=== PATIENT | female | born 1940 | race Caucasian/White ===

== ENCOUNTER 2017-05-06 16:19 | Emergency (ER) | payer OTHER ==
[~2017-05-06] VITALS: Ht 165.1 cm; Wt 69.8 kg
[~2017-05-06 16:19] MED LIST: ALLEGRA180 MG PO; ASPIR-TRIN325 M1 PO; CILOSTAZOL100 MG PO; CLONIDINE HCL0.1 MG PO; DIOVAN HCT 31 TABLE1 PO; LANTUS 3 M100 UNITS1 SQ; LEVAQUIN500 MG PO; LIPITOR20 MG PO; LYRICA100 MG PO; METANX CAPSULE1 EACH PO; NORVASC10 MG PO; NOVOLOG MI100 UNIT/3 SC; NOVOLOG MI100 UNIT/M SC; PROTONIX40 MG PO; SINGULAIR10 MG PO; TOPROL XL100 MG PO; TOVIAZ4 MG PO; ZOFRAN ODT4 MG PO; ZYRTEC10 M2 PO
[2017-05-06 18:19] LABS: BASOPHIL COUNT 0.1 K/uL (0-0.1); EOSINOPHIL (%) 2.5 % (0-5); EOSINOPHIL COUNT 0.2 K/uL (0-0.3); HEMATOCRIT 33.8 % (36.0-46.0); IMMATURE GRANULOCYTE (%) 0.4 % (0.0-0.7); INSTRUMENT ABS NEUTROPHIL CT 5.9 K/uL; LYMPHOCYTE COUNT 2.2 K/uL (1.0-2.8); MCH 29.5 PG (29.0-34.0); MCHC 33.7 G/DL (30.0-36.0); MCV 87.3 FL (83-99); MEAN PLAT.VOLUME 9.9 uM^3 (9.5-12.4); MONOCYTE (%) 9.5 % (3-12); MONOCYTE COUNT 0.9 K/uL (0-0.8); NEUTROPHIL (%) 62.9 % (45-76); NEUTROPHIL COUNT 5.9 K/uL (1.8-6.4); PLATELET COUNT 242 K/uL (156-360); RBC DIS.WIDTH-CV 12.8 % (11.8-14.6); RBC DIS.WIDTH-SD 41.1 % (39-53); RED BLOOD COUNT 3.87 M/uL (3.80-5.20); WHITE BLOOD COUNT 9.3 K/uL (4.1-10.2)
[2017-05-06 18:33] LABS: CHLORIDE 108 mEq/L (99-109); POTASSIUM 3.9 mEq/L (3.7-5.4); SODIUM 142 mEq/L (136-147)
[2017-05-06 18:34] LABS: GLUCOSE 113 mg/dL (70-99)
[2017-05-06 18:36] LABS: ANION GAP 12 MEQ/L (2-14)
[2017-05-06 18:38] LABS: GFR ESTIMATE (CALCULATED) 36 mL/min/
[2017-05-06 18:39] LABS: UREA NITROGEN (BUN) 30 mg/dL (9-23)
[2017-05-06 18:51] LABS: TROP-I INTERPRETATION NEGATIVE; TROPONIN-I < 0.01 ng/mL (0.0-0.30)
[2017-05-06 19:57] VITALS: BP 193/64
== END 2017-05-06 19:58 | disposition home or self-care (01) ==
LOC: EME 16:19
PROVIDERS: Emergency Medicine
DX: I12.9 Hypertensive chronic kidney disease with stage 1 through stage 4 chronic kidney disease, or unspecified chronic kidney disease (principal); N18.9 Chronic kidney disease, unspecified; L30.9 Dermatitis, unspecified; E11.9 Type 2 diabetes mellitus without complications; E78.5 Hyperlipidemia, unspecified; Z85.3 Personal history of malignant neoplasm of breast; Z79.4 Long term (current) use of insulin; J45.909 Unspecified asthma, uncomplicated; Z88.0 Allergy status to penicillin
CPT/HCPCS: 80048; 84484; 85025; 93005; 99281; 99284

== ENCOUNTER 2017-10-05 04:40 | Inpatient (IN) | payer OTHER ==
[~2017-10-05] VITALS: Ht 165.1 cm; Wt 63.6 kg
[2017-10-05 05:16] LABS: BASOPHIL (%) 0.8 % (0-1); BASOPHIL COUNT 0.1 K/uL (0-0.1); EOSINOPHIL (%) 1.7 % (0-5); EOSINOPHIL COUNT 0.1 K/uL (0-0.3); HEMATOCRIT 34.2 % (36.0-46.0); HEMOGLOBIN 11.4 G/DL (11.9-15.5); IMMATURE GRANULOCYTE (%) 0.6 % (0.0-0.7); LYMPHOCYTE (%) 22.6 % (15-42); LYMPHOCYTE COUNT 1.6 K/uL (1.0-2.8); MCH 28.8 PG (29.0-34.0); MCHC 33.3 G/DL (30.0-36.0); MCV 86.4 FL (83-99); MONOCYTE (%) 10.2 % (3-12); MONOCYTE COUNT 0.7 K/uL (0-0.8); NEUTROPHIL (%) 64.1 % (45-76); NEUTROPHIL COUNT 4.6 K/uL (1.8-6.4); PLATELET COUNT 210 K/uL (156-360); RBC DIS.WIDTH-CV 13.6 % (11.8-14.6); RBC DIS.WIDTH-SD 43.3 % (39-53); RED BLOOD COUNT 3.96 M/uL (3.80-5.20); WHITE BLOOD COUNT 7.1 K/uL (4.1-10.2)
[2017-10-05 05:36] LABS: TROP-I INTERPRETATION NEGATIVE; TROPONIN-I 0.05 ng/mL (0.0-0.30)
[2017-10-05 05:38] LABS: ALBUMIN 3.3 g/dL (3.2-4.8)
[2017-10-05 05:39] LABS: CHLORIDE 109 mEq/L (99-109); POTASSIUM 2.9 mEq/L (3.7-5.4); SODIUM 140 mEq/L (136-147)
[2017-10-05 05:41] LABS: GLUCOSE 156 mg/dL (70-99); TOTAL PROTEIN 5.6 g/dL (6.4-8.3)
[2017-10-05 05:43] LABS: TOTAL BILIRUBIN 0.9 mg/dL (0.0-1.0)
[2017-10-05 05:44] LABS: ALKALINE PHOSPHATASE 60 IU/L (3-129)
[2017-10-05 05:45] LABS: CREATININE 1.2 mg/dL (0.6-1.3); GFR ESTIMATE (CALCULATED) 46 mL/min/
[2017-10-05 05:46] LABS: AST (GOT) 23 IU/L (2-34); UREA NITROGEN (BUN) 20 mg/dL (9-23)
[2017-10-05 05:47] LABS: ALT (GPT) 13 IU/L (3-49)
[2017-10-05 05:48] LABS: LIPASE 17 U/L (1.0-51.0)
[2017-10-05 10:33] LABS: APPEARANCE CLOUDY ((CLEAR)); BILIRUBIN NEGATIVE; BLOOD NEGATIVE; COLOR YELLOW ((YELLOW)); GLUCOSE (STRIP) NEGATIVE; KETONES NEGATIVE; LEUKOCYTES MODERATE; NITRITE NEGATIVE; PROTEIN (STRIP) 30; SPECIFIC GRAVITY 1.013 (1.000-1.030); UROBILINOGEN 0.2 MG/DL (0.2-1.0)
[2017-10-05] MEDS ORDERED: LEVEMIR FL100 UNIT/1 SC (10:40)
[2017-10-05] MEDS ORDERED: CLOPIDOGREL75 MG PO (10:41)
[2017-10-05] MEDS ORDERED: APRESOLINE50 MG PO (10:41)
[2017-10-05] MEDS ORDERED: OMEPRAZOLE40 M1 PO (10:41)
[2017-10-05] MEDS ORDERED: TOLTERODINE TART4 MG PO (10:42)
[2017-10-05] MEDS ORDERED: HYTRIN5 MG PO (10:42)
[2017-10-05] MEDS ORDERED: OMEPRAZOLE20 MG PO (10:42)
[2017-10-05 10:51] LABS: BACTERIA 3+ /HPF; EPITHELIAL CELLS 2+ /HPF; MUCUS NONE SEEN /LPF; RED BLOOD CELLS 0-5 /HPF (0-5); WHITE BLOOD CELLS 20-30 /HPF (0-5)
[2017-10-05 11:07] LABS: TROP-I INTERPRETATION NEGATIVE; TROPONIN-I 0.06 ng/mL (0.0-0.30)
[2017-10-05 14:50] LABS: TYPE OF FLUID PLEURAL
[2017-10-05 15:22] LABS: BODY FLUID GLUCOSE 139 MG/DL; BODY FLUID LDH 61 IU/L
[2017-10-05 15:24] LABS: BODY FLUID PROTEIN < 3.0 G/DL
[2017-10-05 15:47] VITALS: BP 190/81
[2017-10-05 15:55] LABS: APPEARANCE SL. HAZY-YELLOW; BODY FLUID EOSINOPHILS 0 % (0-25); BODY FLUID RBC'S 1000 /MM^3 (0-100); BODY FLUID WBC'S 693 /MM^3 (0-500); MONONUCLEAR WBC'S 98 %; POLYNUCLEAR WBC'S 2 % (0-25)
[2017-10-05 17:52] VITALS: BP 185/83
[2017-10-05 18:15] LABS: TROP-I INTERPRETATION NEGATIVE; TROPONIN-I 0.05 ng/mL (0.0-0.30)
[2017-10-05 19:15] VITALS: BP 183/81
[2017-10-06] VITALS (7 sets, daily range): BP systolic 135–176; BP diastolic 66–86
[2017-10-06 05:58] LABS: CHLORIDE 106 MEQ/L (99-109); CREATININE 1.6 MG/DL (0.6-1.3); GFR ESTIMATE (CALCULATED) 33 mL/min/; GLUCOSE 105 mg/dL (70-99); POTASSIUM 3.9 MEQ/L (3.7-5.4); SODIUM 141 MEQ/L (136-147); UREA NITROGEN (BUN) 20 mg/dL (9-23)
[2017-10-07 03:41] VITALS: BP 159/72
[2017-10-07 06:25] LABS: HEMOGLOBIN 10.2 G/DL (11.9-15.5); MCH 29.1 PG (29.0-34.0); MCHC 32.9 G/DL (30.0-36.0); MCV 88.3 FL (83-99); PLATELET COUNT 153 K/uL (156-360); RBC DIS.WIDTH-SD 45.4 % (39-53); RED BLOOD COUNT 3.51 M/uL (3.80-5.20); WHITE BLOOD COUNT 7.2 K/uL (4.1-10.2)
[2017-10-07 08:00] VITALS: BP 179/70
[2017-10-07 11:33] LABS: ALBUMIN 3.2 G/DL (3.2-4.8); ALKALINE PHOSPHATASE 50 IU/L (3-129); ALT (GPT) 9 IU/L (3-49); AST (GOT) 17 IU/L (2-34); CHLORIDE 103 MEQ/L (99-109); CREATININE 3.3 MG/DL (0.6-1.3); GFR ESTIMATE (CALCULATED) 14 mL/min/; GLUCOSE 150 mg/dL (70-99); POTASSIUM 4.4 MEQ/L (3.7-5.4); SODIUM 137 MEQ/L (136-147); TOTAL BILIRUBIN 0.7 MG/DL (0.0-1.0); UREA NITROGEN (BUN) 30 mg/dL (9-23)
[2017-10-07 11:54] VITALS: BP 143/64
[2017-10-07 17:21] VITALS: BP 167/74
[2017-10-07 19:20] VITALS: BP 147/67
[2017-10-07 23:35] VITALS: BP 149/70
[2017-10-08 03:25] VITALS: BP 150/69
[2017-10-08 06:39] LABS: HEMOGLOBIN 10.1 G/DL (11.9-15.5); MCH 29.3 PG (29.0-34.0); MCHC 32.6 G/DL (30.0-36.0); MCV 89.9 FL (83-99); PLATELET COUNT 163 K/uL (156-360); RED BLOOD COUNT 3.45 M/uL (3.80-5.20)
[2017-10-08 07:07] LABS: ALKALINE PHOSPHATASE 47 IU/L (3-129); ALT (GPT) 9 IU/L (3-49); AST (GOT) 15 IU/L (2-34); CHLORIDE 103 MEQ/L (99-109); CREATININE 3.8 MG/DL (0.6-1.3); GFR ESTIMATE (CALCULATED) 12 mL/min/; POTASSIUM 4.2 MEQ/L (3.7-5.4); SODIUM 139 MEQ/L (136-147); TOTAL BILIRUBIN 0.6 MG/DL (0.0-1.0); TOTAL PROTEIN 4.7 G/DL (6.4-8.3); UREA NITROGEN (BUN) 38 mg/dL (9-23)
[2017-10-08 07:08] LABS: GLUCOSE 97 mg/dL (70-99)
[2017-10-08 07:14] VITALS: BP 164/77
[2017-10-08 15:32] VITALS: BP 153/72
[2017-10-08 23:30] VITALS: BP 157/65
[2017-10-09 06:30] LABS: HEMATOCRIT 29.5 % (36.0-46.0); HEMOGLOBIN 9.8 G/DL (11.9-15.5); MCH 29.3 PG (29.0-34.0); MCHC 33.2 G/DL (30.0-36.0); MCV 88.3 FL (83-99); PLATELET COUNT 175 K/uL (156-360); RBC DIS.WIDTH-CV 13.7 % (11.8-14.6); RBC DIS.WIDTH-SD 43.9 % (39-53); RED BLOOD COUNT 3.34 M/uL (3.80-5.20); WHITE BLOOD COUNT 7.6 K/uL (4.1-10.2)
[2017-10-09 06:47] LABS: ALKALINE PHOSPHATASE 47 IU/L (3-129); ALT (GPT) 10 IU/L (3-49); AST (GOT) 18 IU/L (2-34); CHLORIDE 101 MEQ/L (99-109); CREATININE 3.9 MG/DL (0.6-1.3); GFR ESTIMATE (CALCULATED) 12 mL/min/; GLUCOSE 98 mg/dL (70-99); SODIUM 135 MEQ/L (136-147); TOTAL BILIRUBIN 0.5 MG/DL (0.0-1.0); TOTAL PROTEIN 4.9 G/DL (6.4-8.3); UREA NITROGEN (BUN) 43 mg/dL (9-23)
[2017-10-09 08:17] VITALS: BP 164/79
[2017-10-09 11:00] VITALS: BP 162/67
[2017-10-09 16:30] VITALS: BP 154/64
[2017-10-09 19:38] VITALS: BP 131/60
[2017-10-09 23:26] VITALS: BP 156/70
[2017-10-10 03:45] VITALS: BP 162/74
[2017-10-10 06:33] LABS: HEMATOCRIT 31.7 % (36.0-46.0); HEMOGLOBIN 10.5 G/DL (11.9-15.5); MCH 29.6 PG (29.0-34.0); MCHC 33.1 G/DL (30.0-36.0); MCV 89.3 FL (83-99); PLATELET COUNT 180 K/uL (156-360); RBC DIS.WIDTH-CV 13.6 % (11.8-14.6); RBC DIS.WIDTH-SD 44.7 % (39-53); RED BLOOD COUNT 3.55 M/uL (3.80-5.20); WHITE BLOOD COUNT 9.1 K/uL (4.1-10.2)
[2017-10-10 07:15] LABS: ALBUMIN 3.1 G/DL (3.2-4.8); ALKALINE PHOSPHATASE 50 IU/L (3-129); ALT (GPT) 10 IU/L (3-49); AST (GOT) 15 IU/L (2-34); CHLORIDE 100 MEQ/L (99-109); CREATININE 3.7 MG/DL (0.6-1.3); GFR ESTIMATE (CALCULATED) 13 mL/min/; GLUCOSE 91 mg/dL (70-99); PHOSPHORUS 5.1 mg/dL (2.5-4.9); POTASSIUM 4.3 MEQ/L (3.7-5.4); SODIUM 135 MEQ/L (136-147); TOTAL BILIRUBIN 0.6 MG/DL (0.0-1.0); TOTAL PROTEIN 5.1 G/DL (6.4-8.3); UREA NITROGEN (BUN) 49 mg/dL (9-23)
[2017-10-10 07:33] VITALS: BP 180/77
[2017-10-10 12:29] VITALS: BP 166/74
[2017-10-10 15:17] VITALS: BP 168/71
[2017-10-10 23:34] VITALS: BP 123/72
[2017-10-11 06:46] LABS: HEMATOCRIT 29.7 % (36.0-46.0); MCH 29.9 PG (29.0-34.0); MCHC 33.7 G/DL (30.0-36.0); MCV 88.9 FL (83-99); PLATELET COUNT 172 K/uL (156-360); RBC DIS.WIDTH-CV 13.5 % (11.8-14.6); RBC DIS.WIDTH-SD 44.1 % (39-53); RED BLOOD COUNT 3.34 M/uL (3.80-5.20); WHITE BLOOD COUNT 10.9 K/uL (4.1-10.2)
[2017-10-11 07:00] VITALS: BP 157/65
[2017-10-11 07:13] LABS: ALBUMIN 2.9 G/DL (3.2-4.8); ALKALINE PHOSPHATASE 46 IU/L (3-129); ALT (GPT) 10 IU/L (3-49); AST (GOT) 14 IU/L (2-34); CHLORIDE 99 MEQ/L (99-109); GFR ESTIMATE (CALCULATED) 9 mL/min/; GLUCOSE 78 mg/dL (70-99); PHOSPHORUS 6.4 mg/dL (2.5-4.9); POTASSIUM 4.4 MEQ/L (3.7-5.4); SODIUM 134 MEQ/L (136-147); TOTAL BILIRUBIN 0.6 MG/DL (0.0-1.0); TOTAL PROTEIN 4.7 G/DL (6.4-8.3); UREA NITROGEN (BUN) 61 mg/dL (9-23)
[2017-10-11 07:14] LABS: CREATININE 4.8 MG/DL (0.6-1.3)
[2017-10-11 11:32] VITALS: BP 144/65
[2017-10-11 15:00] VITALS: BP 144/61
[2017-10-11 20:03] VITALS: BP 145/63
[2017-10-11 23:27] VITALS: BP 151/57
[2017-10-12 02:47] VITALS: BP 140/70
[2017-10-12 06:05] LABS: HEMATOCRIT 28.2 % (36.0-46.0); HEMOGLOBIN 9.2 G/DL (11.9-15.5); MCH 28.7 PG (29.0-34.0); MCHC 32.6 G/DL (30.0-36.0); MCV 87.9 FL (83-99); PLATELET COUNT 180 K/uL (156-360); RBC DIS.WIDTH-CV 13.3 % (11.8-14.6); RED BLOOD COUNT 3.21 M/uL (3.80-5.20); WHITE BLOOD COUNT 9.3 K/uL (4.1-10.2)
[2017-10-12 06:39] LABS: ALBUMIN 2.9 G/DL (3.2-4.8); ALKALINE PHOSPHATASE 49 IU/L (3-129); ALT (GPT) 11 IU/L (3-49); AST (GOT) 18 IU/L (2-34); CHLORIDE 95 MEQ/L (99-109); CREATININE 5.4 MG/DL (0.6-1.3); GFR ESTIMATE (CALCULATED) 8 mL/min/; GLUCOSE 81 mg/dL (70-99); POTASSIUM 4.6 MEQ/L (3.7-5.4); SODIUM 129 MEQ/L (136-147); TOTAL BILIRUBIN 0.6 MG/DL (0.0-1.0); TOTAL PROTEIN 4.7 G/DL (6.4-8.3); UREA NITROGEN (BUN) 66 mg/dL (9-23)
[2017-10-12 08:07] VITALS: BP 144/63
[2017-10-12 13:28] VITALS: BP 161/70
[2017-10-12 15:40] VITALS: BP 160/66
[2017-10-12 19:27] VITALS: BP 187/87
[2017-10-12 23:32] VITALS: BP 148/72
[2017-10-13 03:49] VITALS: BP 156/65
[2017-10-13 04:37] LABS: APPEARANCE CLOUDY ((CLEAR)); BILIRUBIN NEGATIVE; BLOOD NEGATIVE; COLOR AMBER ((YELLOW)); GLUCOSE (STRIP) NEGATIVE; KETONES 5; LEUKOCYTES NEGATIVE; NITRITE NEGATIVE; PROTEIN (STRIP) 30; SPECIFIC GRAVITY 1.013 (1.000-1.030); UROBILINOGEN 0.2 MG/DL (0.2-1.0)
[2017-10-13 04:45] LABS: BACTERIA RARE /HPF; EPITHELIAL CELLS 2+ /HPF; HYALINE CASTS 30-40 /LPF; MUCUS TRACE /LPF; RED BLOOD CELLS 20-30 /HPF (0-5)
[2017-10-13 05:02] LABS: UR CREATININE CONCENTRATION 225.1 MG/DL
[2017-10-13 06:33] LABS: HEMATOCRIT 26.8 % (36.0-46.0); MCH 29.3 PG (29.0-34.0); MCHC 33.6 G/DL (30.0-36.0); MCV 87.3 FL (83-99); PLATELET COUNT 165 K/uL (156-360); RBC DIS.WIDTH-CV 13.1 % (11.8-14.6); RBC DIS.WIDTH-SD 41.7 % (39-53); RED BLOOD COUNT 3.07 M/uL (3.80-5.20); WHITE BLOOD COUNT 7.2 K/uL (4.1-10.2)
[2017-10-13 06:49] VITALS: BP 164/59
[2017-10-13 07:00] LABS: CHLORIDE 95 MEQ/L (99-109); CREATININE 5.3 MG/DL (0.6-1.3); GFR ESTIMATE (CALCULATED) 8 mL/min/; GLUCOSE 69 mg/dL (70-99); POTASSIUM 4.7 MEQ/L (3.7-5.4); SODIUM 126 MEQ/L (136-147); UREA NITROGEN (BUN) 67 mg/dL (9-23)
[2017-10-13 19:15] LABS: CHLORIDE 93 MEQ/L (99-109); POTASSIUM 4.6 MEQ/L (3.7-5.4); SODIUM 126 MEQ/L (136-147)
[2017-10-13 19:20] LABS: CREATININE 5.5 MG/DL (0.6-1.3); GFR ESTIMATE (CALCULATED) 8 mL/min/; GLUCOSE 67 mg/dL (70-99); UREA NITROGEN (BUN) 71 mg/dL (9-23)
[2017-10-13 20:11] VITALS: BP 164/67
[2017-10-13 22:12] VITALS: BP 158/66
[2017-10-14 00:33] VITALS: BP 153/66
[2017-10-14 03:38] VITALS: BP 155/82
[2017-10-14 05:59] LABS: HEMATOCRIT 25.7 % (36.0-46.0); HEMOGLOBIN 8.8 G/DL (11.9-15.5); MCH 29.9 PG (29.0-34.0); MCHC 34.2 G/DL (30.0-36.0); MCV 87.4 FL (83-99); PLATELET COUNT 163 K/uL (156-360); RBC DIS.WIDTH-CV 13.2 % (11.8-14.6); RBC DIS.WIDTH-SD 42.3 % (39-53); RED BLOOD COUNT 2.94 M/uL (3.80-5.20); WHITE BLOOD COUNT 7.3 K/uL (4.1-10.2)
[2017-10-14 06:38] LABS: ALBUMIN 2.8 G/DL (3.2-4.8); CHLORIDE 95 MEQ/L (99-109); CREATININE 5.8 MG/DL (0.6-1.3); GFR ESTIMATE (CALCULATED) 7 mL/min/; GLUCOSE 57 mg/dL (70-99); IRON 41 MCG/DL (35-150); POTASSIUM 4.6 MEQ/L (3.7-5.4); SODIUM 128 MEQ/L (136-147); TRANSFERRIN (TIBC) 141.7 mg/dL (215-380); TRANSFERRIN SATUR. 29 % (20-55); UREA NITROGEN (BUN) 73 mg/dL (9-23)
[2017-10-14 07:46] VITALS: BP 154/66
[2017-10-14 12:34] VITALS: BP 162/70
[2017-10-14 16:03] VITALS: BP 150/70
[2017-10-14 20:03] VITALS: BP 199/70
[2017-10-15 00:26] VITALS: BP 184/72
[2017-10-15 04:26] VITALS: BP 191/80
[2017-10-15 05:56] LABS: HEMATOCRIT 25.6 % (36.0-46.0); HEMOGLOBIN 8.7 G/DL (11.9-15.5); MCH 29.5 PG (29.0-34.0); MCV 86.8 FL (83-99); PLATELET COUNT 169 K/uL (156-360); RBC DIS.WIDTH-CV 13.5 % (11.8-14.6); RBC DIS.WIDTH-SD 42.4 % (39-53); RED BLOOD COUNT 2.95 M/uL (3.80-5.20); WHITE BLOOD COUNT 7.9 K/uL (4.1-10.2)
[2017-10-15 06:06] LABS: ALBUMIN 2.7 g/dL (3.2-4.8)
[2017-10-15 06:07] LABS: CHLORIDE 99 mEq/L (99-109); POTASSIUM 4.4 mEq/L (3.7-5.4); SODIUM 132 mEq/L (136-147)
[2017-10-15 06:09] LABS: GLUCOSE 79 mg/dL (70-99)
[2017-10-15 06:12] LABS: PHOSPHORUS 4.1 mg/dL (2.5-4.9)
[2017-10-15 06:13] LABS: CREATININE 3.5 mg/dL (0.6-1.3); GFR ESTIMATE (CALCULATED) 13 mL/min/
[2017-10-15 06:14] LABS: UREA NITROGEN (BUN) 32 mg/dL (9-23)
[2017-10-15 11:03] VITALS: BP 195/74
[2017-10-15 11:23] LABS: ANTI-HEPATITIS B CORE (TOTAL) Nonreactive
[2017-10-15 11:24] LABS: HEPATITIS B SURFACE ANTIGEN Nonreactive; HEPATITIS C ANTIBODY Nonreactive
[2017-10-15 11:25] LABS: HEPATITIS B SURFACE ANTIBODY Nonreactive
[2017-10-15 15:16] VITALS: BP 179/84
[2017-10-15 23:37] VITALS: BP 168/72
[2017-10-16 06:06] LABS: HEMATOCRIT 26.5 % (36.0-46.0); HEMOGLOBIN 8.7 G/DL (11.9-15.5); MCH 29.3 PG (29.0-34.0); MCHC 32.8 G/DL (30.0-36.0); MCV 89.2 FL (83-99); PLATELET COUNT 163 K/uL (156-360); RBC DIS.WIDTH-CV 13.7 % (11.8-14.6); RBC DIS.WIDTH-SD 45.1 % (39-53); RED BLOOD COUNT 2.97 M/uL (3.80-5.20); WHITE BLOOD COUNT 9.8 K/uL (4.1-10.2)
[2017-10-16 06:32] LABS: ALBUMIN 2.8 G/DL (3.2-4.8); CHLORIDE 99 MEQ/L (99-109); CREATININE 3.1 MG/DL (0.6-1.3); GFR ESTIMATE (CALCULATED) 15 mL/min/; GLUCOSE 81 mg/dL (70-99); PHOSPHORUS 3.7 mg/dL (2.5-4.9); POTASSIUM 4.1 MEQ/L (3.7-5.4); SODIUM 135 MEQ/L (136-147); UREA NITROGEN (BUN) 16 mg/dL (9-23)
[2017-10-16 08:27] VITALS: BP 170/80
[2017-10-16 12:33] VITALS: BP 180/76
[2017-10-16 15:00] VITALS: BP 182/76
[2017-10-16 18:55] VITALS: BP 181/73
[2017-10-16 23:30] VITALS: BP 178/90
[2017-10-17 04:20] VITALS: BP 170/71
[2017-10-17 06:50] VITALS: BP 189/75
[2017-10-17 08:21] LABS: BASOPHIL (%) 0.5 % (0-1); BASOPHIL COUNT 0.1 K/uL (0-0.1); EOSINOPHIL (%) 2.3 % (0-5); EOSINOPHIL COUNT 0.3 K/uL (0-0.3); HEMATOCRIT 28.8 % (36.0-46.0); HEMOGLOBIN 9.5 G/DL (11.9-15.5); IMMATURE GRANULOCYTE (%) 1.1 % (0.0-0.7); LYMPHOCYTE (%) 13.2 % (15-42); LYMPHOCYTE COUNT 1.5 K/uL (1.0-2.8); MCH 29.5 PG (29.0-34.0); MCV 89.4 FL (83-99); MONOCYTE (%) 11.6 % (3-12); MONOCYTE COUNT 1.3 K/uL (0-0.8); NEUTROPHIL (%) 71.3 % (45-76); PLATELET COUNT 173 K/uL (156-360); RBC DIS.WIDTH-CV 13.7 % (11.8-14.6); RED BLOOD COUNT 3.22 M/uL (3.80-5.20); WHITE BLOOD COUNT 11.2 K/uL (4.1-10.2)
[2017-10-17 08:31] LABS: ALBUMIN 2.9 G/DL (3.2-4.8); CHLORIDE 97 MEQ/L (99-109); POTASSIUM 4.2 MEQ/L (3.7-5.4); SODIUM 133 MEQ/L (136-147)
[2017-10-17 08:47] LABS: GFR ESTIMATE (CALCULATED) 11 mL/min/; PHOSPHORUS 3.7 mg/dL (2.5-4.9); UREA NITROGEN (BUN) 24 mg/dL (9-23)
[2017-10-17 08:55] LABS: CREATININE 4.2 MG/DL (0.6-1.3); GLUCOSE 113 mg/dL (70-99)
[2017-10-17 11:48] VITALS: BP 197/84
[2017-10-17 14:18] VITALS: BP 178/70
[2017-10-17 16:04] VITALS: BP 187/79
[2017-10-17 18:55] VITALS: BP 184/76
[2017-10-18] VITALS (7 sets, daily range): BP systolic 149–189; BP diastolic 74–102
[2017-10-18 06:54] LABS: HEMATOCRIT 28.7 % (36.0-46.0); HEMOGLOBIN 9.4 G/DL (11.9-15.5); MCH 29.1 PG (29.0-34.0); MCHC 32.8 G/DL (30.0-36.0); MCV 88.9 FL (83-99); PLATELET COUNT 203 K/uL (156-360); RBC DIS.WIDTH-CV 13.7 % (11.8-14.6); RBC DIS.WIDTH-SD 44.9 % (39-53); RED BLOOD COUNT 3.23 M/uL (3.80-5.20); WHITE BLOOD COUNT 11.5 K/uL (4.1-10.2)
[2017-10-18 07:28] LABS: ALBUMIN 2.8 G/DL (3.2-4.8); CHLORIDE 97 MEQ/L (99-109); GFR ESTIMATE (CALCULATED) 15 mL/min/; PHOSPHORUS 3.6 mg/dL (2.5-4.9); POTASSIUM 4.4 MEQ/L (3.7-5.4); SODIUM 135 MEQ/L (136-147); UREA NITROGEN (BUN) 15 mg/dL (9-23)
[2017-10-18 07:32] LABS: CREATININE 3.2 MG/DL (0.6-1.3); GLUCOSE 81 mg/dL (70-99)
[2017-10-19 04:12] VITALS: BP 169/94
[2017-10-19 06:36] VITALS: BP 180/77
[2017-10-19 06:51] LABS: ALBUMIN 3.3 G/DL (3.2-4.8); CHLORIDE 93 MEQ/L (99-109); GFR ESTIMATE (CALCULATED) 11 mL/min/; PHOSPHORUS 3.5 mg/dL (2.5-4.9); POTASSIUM 4.3 MEQ/L (3.7-5.4); SODIUM 130 MEQ/L (136-147); UREA NITROGEN (BUN) 22 mg/dL (9-23)
[2017-10-19 06:54] LABS: CREATININE 4.2 MG/DL (0.6-1.3); GLUCOSE 103 mg/dL (70-99)
[2017-10-19 07:04] LABS: BASOPHIL (%) 0.6 % (0-1); BASOPHIL COUNT 0.1 K/uL (0-0.1); EOSINOPHIL (%) 3.3 % (0-5); EOSINOPHIL COUNT 0.4 K/uL (0-0.3); HEMATOCRIT 30.4 % (36.0-46.0); HEMOGLOBIN 9.9 G/DL (11.9-15.5); LYMPHOCYTE (%) 19.5 % (15-42); LYMPHOCYTE COUNT 2.5 K/uL (1.0-2.8); MCH 28.7 PG (29.0-34.0); MCHC 32.6 G/DL (30.0-36.0); MCV 88.1 FL (83-99); MONOCYTE (%) 12.9 % (3-12); MONOCYTE COUNT 1.6 K/uL (0-0.8); NEUTROPHIL (%) 62.7 % (45-76); NEUTROPHIL COUNT 7.9 K/uL (1.8-6.4); PLATELET COUNT 240 K/uL (156-360); RBC DIS.WIDTH-CV 13.7 % (11.8-14.6); RBC DIS.WIDTH-SD 44.4 % (39-53); RED BLOOD COUNT 3.45 M/uL (3.80-5.20); WHITE BLOOD COUNT 12.7 K/uL (4.1-10.2)
== END 2017-10-19 15:20 | disposition short-term general hospital (02) | DRG 291 ==
LOC: EME 04:40 → EDOF 08:31 → ENRESERV 08:37 → 4EAST 08:53 → EDOF 08:53 → 4EAST 08:53 → 2EAST 08:53 → ENRESERV 09:28 → 4EAST 15:24 → ENRESERV 10-06 21:38 → 2EAST 10-06 22:26
PROVIDERS: Emergency Medicine; Internal Medicine; Internal Medicine Cardiovascular Disease; Internal Medicine Nephrology
DX: I13.0 Hypertensive heart and chronic kidney disease with heart failure and stage 1 through stage 4 chronic kidney disease, or unspecified chronic kidney disease (principal); I50.21 Acute systolic (congestive) heart failure; N18.3 Chronic kidney disease, stage 3 (moderate); J18.9 Pneumonia, unspecified organism; N13.6 Pyonephrosis; E11.22 Type 2 diabetes mellitus with diabetic chronic kidney disease; E11.51 Type 2 diabetes mellitus with diabetic peripheral angiopathy without gangrene; I31.3 Pericardial effusion (noninflammatory); J90 Pleural effusion, not elsewhere classified; N17.9 Acute kidney failure, unspecified; T50.1X5A Adverse effect of loop [high-ceiling] diuretics, initial encounter; N14.1 Nephropathy induced by other drugs, medicaments and biological substances; T50.8X5A Adverse effect of diagnostic agents, initial encounter; B96.1 Klebsiella pneumoniae [K. pneumoniae] as the cause of diseases classified elsewhere; I74.09 Other arterial embolism and thrombosis of abdominal aorta; I70.1 Atherosclerosis of renal artery; R09.02 Hypoxemia; I16.0 Hypertensive urgency; J98.11 Atelectasis; I70.0 Atherosclerosis of aorta; E78.5 Hyperlipidemia, unspecified; E87.6 Hypokalemia; I34.0 Nonrheumatic mitral (valve) insufficiency; I42.9 Cardiomyopathy, unspecified; I70.209 Unspecified atherosclerosis of native arteries of extremities, unspecified extremity; D63.1 Anemia in chronic kidney disease; K21.9 Gastro-esophageal reflux disease without esophagitis; N32.81 Overactive bladder; N35.9 Urethral stricture, unspecified; N39.41 Urge incontinence; Z79.4 Long term (current) use of insulin; Z79.02 Long term (current) use of antithrombotics/antiplatelets; Z85.3 Personal history of malignant neoplasm of breast; Z90.12 Acquired absence of left breast and nipple; Z87.440 Personal history of urinary (tract) infections
CPT/HCPCS: 71020; 71250; 74174; 74176; 76770; 76942; 80048; 80048 91; 80053; 80069; 81003; 82570; 82945; 82948; 83540; 83615 91; 83690; 83880; 84100; 84132 91; 84156; 84157; 84300; 84466; 84484; 85025; 85027; 86704; 86706; 86803; 87040; 87070; 87075; 87077; 87086; 87186; 87205; 87340; 88108; 88305; 89051; 93005; 93306; 93975; 94010; 94799; 99281; 99285; C1750; C1760; C1769; C1894; J0360; J0696; J1644; J1815; J1940; J1956; J2250; J2405; J3010; J7030